=== PATIENT | male | born 1970 | race Caucasian/White ===

== ENCOUNTER → 2017-08-05 | Outpatient (CLI) | payer BC ==
--- NOTE | 2017-08-05 16:17 | Diagnostic Imaging Report ---
PROCEDURE: Frontal and lateral views of the chest. COMPARISON: None. INDICATIONS: HIGH WBC COUNT, FOLLOW UP PHYSICAL FINDINGS: Lines/tubes: None. Lungs: The lungs are well inflated and clear. There is no evidence of pneumonia or pulmonary edema. Pleura: There is no pleural effusion or pneumothorax. Heart and mediastinum: The heart and the mediastinum are normal. Bones: No acute bony abnormality. IMPRESSION: 1. No acute cardiopulmonary disease. Dictated by: Chapin Traore M.D. on 08/05/2017 at 16:20 Electronically approved by: Chapin Traore M.D. on 08/05/2017 at 16:20
== END ==
LOC: RAD 15:38
PROVIDERS: ATTEND Family Medicine
DX: D72.829 Elevated white blood cell count, unspecified (principal); Z72.0 Tobacco use
CPT/HCPCS: 71046